=== PATIENT | male | born 2000 | race Caucasian/White ===

== ENCOUNTER 2023-07-06 20:19 | Emergency (ER) | payer OTHER, SELFPAY ==
[2023-07-06 20:29] VITALS: BP 125/71; PULSE 72; RESP 18; TEMP 37.3; O2SAT 100; BMI 22.9
--- NOTE | 2023-07-06 20:44 | ED_ITS ---
HPI - Wound/Laceration General Chief Complaint: Wound/Laceration Stated Complaint: hit head on beam Time Seen by Provider: 07/06/23 20:24 Source: patient Mode of arrival: Ambulatory History of Present Illness HPI narrative: 22-year-old male presents for head injury that occurred just prior to arrival. Patient is in a new house and accidentally struck the top of his head against a beam in the house. He then fell backwards, hitting the back of his head against the ground. He did not lose consciousness but did feel dazed after the event. Denies use of blood thinners. Is uncertain of his tetanus vaccination status. Related Data Allergies Allergy/AdvReac Type Severity Reaction Status Date / Time No Known Drug Allergies Allergy Verified 09/08/19 15:52 Review of Systems Review of Systems Narrative: Negative except as noted above Patient History Social History Smoking Status: Never smoker Smoking Status: Never smoker alcohol intake frequency: other Substance Use Type: does not use Exam Initial Vital Signs Initial Vital Signs: Vital Signs Temperature 99.2 F 07/06/23 20:29 Pulse Rate 72 07/06/23 20:29 Respiratory Rate 18 07/06/23 20:29 Blood Pressure 125/71 07/06/23 20:29 Pulse Oximetry 100 07/06/23 20:29 Oxygen Delivery Method Room Air 07/06/23 20:29 Const: Awake, alert, no acute distress, nontoxic appearing Head: 6 cm horizontal laceration over crown of head, no active bleeding Eyes: PERRL, EOMI, conjunctiva normal, no raccoon eyes ENT: Atraumatic, dentition normal, mucous membranes moist, no nicole sign Cardiac: regular rate, regular rhythm RESP: unlabored, clear bilaterally, no wheezing MSK: Atraumatic, full range of motion, pulses equal Skin: Warm, Dry, intact, no rashes Neuro: AO x3, CN II-XII grossly intact, moves all extremities Psych: affect normal, mood normal, not suicidal, not homicidal Procedures Laceration Repair Laceration 1: Site: scalp Size (cm): 6 Description: linear Depth: simple, single layer Local Anesthetic: other anesthetic (Prilocine) Pre-repair: irrigated extensively Skin layer closed with: marko Course Orders Ordered: Discontinued Medications Diphtheria/Tetanus/Acell Pertussis (Tet,Diph,Pertuss(Acell),Vac/Pf 0.5 Ml Syringe) 0.5 ml IM .ONCE ONE Stop: 07/06/23 20:44 Last Admin: 07/06/23 21:26 Dose: 0.5 ml Documented By: FAVIOLA Lidocaine/Prilocaine (Lidocaine/Prilocaine 5 Gm) 5 gm TOP NOW ONE Stop: 07/06/23 20:40 Last Admin: 07/06/23 21:26 Dose: 5 gm Documented By: FAVIOLA Vital Signs Vital signs: Vital Signs - 8 hr 07/06/23 20:29 07/06/23 22:16 Temperature 99.2 F 98.4 F Pulse Rate 72 85 Respiratory Rate 18 18 Blood Pressure 125/71 141/69 H Pulse Oximetry 100 100 Oxygen Delivery Method Room Air Room Air MDM - Wound/Laceration MDM Narrative Medical decision making narrative: Scalp laceration and blunt head injury. [place] head CT and nexus head CT criteria negative, no indication for CT imaging. Tetanus shot updated, wound repaired per procedure note. Discharge Plan Departure Patient Disposition: Home Clinical Impression: Laceration of scalp Instructions: DI for Laceration Repair -- Marko Activity Restrictions/Additional Instructions: Staple removal in 10-14 days. Do not shower tonight, but tomorrow you may shower and use gentle soaps such as baby shampoo on your hair. Do not scrub the marko Referrals: Anoop Roth ARNP [Primary Care Provider] - Stand Alone Forms: Patient Portal/API
[2023-07-06] MEDS: LIDOCAINE/PRILOCAINE 5 GM TOP (21:26)
[2023-07-06] MEDS: TET,DIPH,PERTUSS(ACELL),VAC/PF 0.5 ML SYRINGE IM (21:26)
[2023-07-06 22:16] VITALS: BP 141/69; PULSE 85; RESP 18; TEMP 36.9; O2SAT 100
== END 2023-07-06 22:22 | disposition home or self-care (01) ==
PROVIDERS: Emergency Provider Emergency Medicine; PCP Registered Nurse
DX: S01.01XA Laceration without foreign body of scalp, initial encounter (principal); W18.39XA Other fall on same level, initial encounter; Y92.009 Unspecified place in unspecified non-institutional (private) residence as the place of occurrence of the external cause; Z23 Encounter for immunization
CPT/HCPCS: 12002; 90471; 99283; 90715